=== PATIENT | male | born 1960 | race Caucasian/White ===

== ENCOUNTER 2017-10-07 09:41 | Emergency (ER) | payer OTHER ==
--- NOTE | 2017-10-07 10:00 | Emergency Department Record ---
History of Present Illness - General Chief complaint: ENT Stated complaint: SORE THROAT Time Seen by Provider: 10/07/17 09:54 Source: Patient Mode of Arrival: Ambulatory Limitations: No limitations - History of Present Illness Initial comments: The patient has a ST and hoarse voice for 5 days and now also is coughing up colored sputum. He denies any CP, SOB, ZENAIDA, or fever. The patient states the coughing seems to be worsening now. MD complaint: Sore throat Onset/Timin -: Days(s) Location: Throat Severity: Moderate Severity scale (1-10): 3 Quality: Other Consistency: Intermittent - Related Data Previous Rx's Medication Instructions Recorded Azithromycin [Zithromax] 250 mg PO ASDIR #6 tab 10/07/17 Prednisone [Prednisone 20Mg] 40 mg PO DAILY #8 tab 10/07/17 Allergies Allergy/AdvReac Type Severity Reaction Status Date / Time lidocaine [LIDOCAINE] Allergy Unknown HYPERSENSIT Verified 10/07/17 09:56 IVITY Travel Screening - Travel/Exposure Within Last 30 Days Have you traveled within the last 30 days?: Yes Location Detail:: [place] - Travel/Exposure Within Last Year Have you traveled outside the [place] in the last year?: Yes Location Detail:: [place] - Travel Symptoms Symptom Screening: None Review of Systems Constitutional: Reports: Malaise. Denies: Chills, Fever Eyes: Denies: Eye discharge ENT: Reports: Congestion, Throat pain Respiratory: Reports: Cough. Denies: Dyspnea Past Medical History - SOCIAL HISTORY Smoking Status: Former smoker Alcohol Use: Rare Drug Use: None - RESPIRATORY Hx Respiratory Disorders: Yes Hx Sleep Apnea: Yes Hx of CPAP: Yes - CARDIOVASCULAR Hx Cardio Disorders: Yes Hx Chest Pain: Yes Hx Hypertension: Yes Hx Irregular Heartbeat: Yes Comment:: age of 8 rheumatic fever - NEURO Hx Neuro Disorders: Yes Comment:: early Parkinsons - GI Hx GI Disorders: Yes Hx Diverticulitis: Yes Hx Reflux: Yes Hx Hiatal Hernia: Yes Hx Rectal Bleeding: Yes - Hx Genitourinary Disorders: No - ENDOCRINE Hx Endocrine Disorders: No Hx Diabetes: No Hx Thyroid Disease: No - MUSCULOSKELETAL Hx Arthritis: Yes - PSYCH Hx Psych Problems: No - HEMATOLOGY/ONCOLOGY Hx Hematology/Oncology Disorders: No Family Medical History Any Significant Family History?: No Hx Cancer: Brother/Sister Hx Diabetes: Father, Mother, Brother/Sister Hx Heart Disease: Father Physical Exam - General General Appearance: Alert, Oriented x3, Cooperative, No acute distress - Head Head exam: Atraumatic, Normocephalic, Normal inspection - Eye Eye exam: Normal appearance, PERRL - ENT ENT exam: TM's normal bilaterally. negative: Normal exam Throat exam: Tonsillar erythema. negative: Normal inspection, Tonsillomegaly, Tonsillar exudate, R peritonsillar mass, L peritonsillar mass - Neck Neck exam: Normal inspection, Full ROM. negative: Lymphadenopathy, Meningismus , Tenderness - Respiratory Respiratory exam: Normal lung sounds bilaterally. negative: Respiratory distress - Cardiovascular Cardiovascular Exam: Regular rate, Normal rhythm, Normal heart sounds Course Vital Signs 10/07/17 09:44 Temperature 98.6 F Pulse Rate 75 Respiratory 16 Rate Blood Pressure 143/91 Pulse Ox 98 - Reevaluation(s) Reevaluation #1: I did explain to the patient that he has a significant URI which most likely is viral in origin. Due to the coughing worsening we will place the patient on a Zpak with prednisone for pain. 10/07/17 10:04 Disposition Disposition: Discharge Clinical Impression: Upper respiratory infection, acute Disposition: Home, Self-Care Condition: (2) Stable Instructions: Upper Respiratory Infection (ED) Additional Instructions: Please use Tylenol for pain and take the Zpak and Prednisone as directed. Please see your PCP in 3 days if not better. Return to the ER for any increased pain, fever, or shortness of breath. Prescriptions: Azithromycin [Zithromax] 250 mg PO ASDIR #6 tab Prednisone [Prednisone 20Mg] 40 mg PO DAILY #8 tab Forms: Patient Portal Access Time of Disposition: 10:02 Quality - Quality Measures Quality Measures: N/A - Blood Pressure Screening View Details: Yes Does Patient Have Any of the Following: No Blood Pressure Classification: Hypertensive Reading Systolic Measurement: 143 Diastolic Measurement: 92 Screening for High Blood Pressure: < Pre-Hypertensive BP, F/U Documented > [ [id number]] Pre-Hypertensive Follow-up Interventions: Referral to alternative/primary care provider.
== END 2017-10-07 10:10 | disposition home or self-care (01) ==
LOC: ER 09:41
DX: J06.9 Acute upper respiratory infection, unspecified (principal); R05 Cough
CPT/HCPCS: 99282

== ENCOUNTER 2018-12-06 11:21 | Emergency (ER) | payer OTHER ==
[2018-12-06] MEDS ORDERED: HYDROCODONE/APAP 7.5/325MG TABLET PO ONE (11:44)
--- NOTE | 2018-12-06 11:44 | Emergency Department Record ---
History of Present Illness - General Chief Complaint: Back Pain/Injury Stated Complaint: BACK PAIN X2 WKS Time Seen by Provider: 12/06/18 11:26 Source: Patient, Family Mode of Arrival: Ambulatory Limitations: No limitations - History of Present Illness Initial Comments: 58 yo male presents with right sided back for about two weeks. The pain has gradually come on and gradually increased. He points to an area over the right flank. No rash. He did not his urine seemed darker. No obvious blood. No fevers, chills. No leg radiation. No abdominal pain or radiation to the abdomen. The pain is worse with certain movements, walking and bending. No leg numbness, tingling, weakness or shooting pains. No foot drop. No history of back surgery. His PCP is Dr Darling. He has an appointment in about one week but could not wait due to pain. He is unaware of any specific injury. MD Complaint: Back pain Onset/Timin -: Week(s) Similar Symptoms Previously: No Place: Home Severity: Moderate Severity scale (1-10): 6 Quality: Aching, Sharp Improves With: None Worsens With: Immobilization, Walking, Other Associated Symptoms: Denies other symptoms, Other - Related Data Home Medications Medication Instructions Recorded Confirmed Last Taken Atorvastatin Calcium [Lipitor] 40 mg PO QHS 12/06/18 12/06/18 12/05/18 Ubidecarenone [Coq-10] 100 mg PO DAILY 12/06/18 12/06/18 12/06/18 Vitamin B Complex/Folic Acid 0.4 mg PO DAILY 12/06/18 12/06/18 12/06/18 [B-Complex Tablet] Previous Rx's Medication Instructions Recorded Hydrocodone/Acetaminophen [Golden 1 tab PO Q6H PRN #12 tab 12/06/18 5mg/325mg] Allergies Allergy/AdvReac Type Severity Reaction Status Date / Time lidocaine [LIDOCAINE] Allergy Unknown HYPERSENSIT Verified 10/07/17 09:56 IVITY Travel Screening - Travel/Exposure Within Last 30 Days Have you traveled within the last 30 days?: Yes Location Detail:: [place]/[facility] - Travel/Exposure Within Last Year Have you traveled outside the [place] in the last year?: No - Additonal Travel Details Have you been exposed to anyone with a communicable illness?: No - Travel Symptoms Symptom Screening: None Review of Systems Constitutional: Denies: Chills, Fever, Malaise, Weakness Eyes: Denies: Eye discharge ENT: Denies: Congestion, Throat pain Respiratory: Denies: Cough, Dyspnea, Hemoptysis, Stridor, Wheezes Cardiovascular: Denies: Chest pain, Dyspnea on exertion, Palpitations, Syncope Endocrine: Denies: Fatigue Gastrointestinal: Denies: Abdominal pain, Diarrhea, Nausea, Vomiting Genitourinary: Reports: As per HPI, Dysuria. Denies: Frequency, Hematuria Musculoskeletal: Reports: Back pain, Myalgia. Denies: Arthralgia, Joint swelling, Neck pain Skin: Denies: Bruising, Change in color, Rash Neurological: Denies: Abnormal gait, Headache, Numbness, Paresthesias, Tingling , Tremors, Weakness Psychiatric: Denies: Anxiety Hematological/Lymphatic: Denies: Blood Clots, Easy bleeding, Easy bruising, Swollen glands Past Medical History - SOCIAL HISTORY Smoking Status: Former smoker Alcohol Use: Occasional Drug Use: None - RESPIRATORY Hx Respiratory Disorders: Yes Hx Sleep Apnea: Yes Hx of CPAP: Yes - CARDIOVASCULAR Hx Cardio Disorders: Yes Hx Chest Pain: Yes Hx Hypertension: Yes Hx Irregular Heartbeat: Yes Comment:: age of 8 rheumatic fever - NEURO Hx Neuro Disorders: Yes Comment:: early Parkinsons - GI Hx GI Disorders: Yes Hx Diverticulitis: Yes Hx Reflux: Yes Hx Hiatal Hernia: Yes Hx Rectal Bleeding: Yes - Hx Genitourinary Disorders: No - ENDOCRINE Hx Endocrine Disorders: No Hx Diabetes: No Hx Thyroid Disease: No - MUSCULOSKELETAL Hx Arthritis: Yes - PSYCH Hx Psych Problems: No - HEMATOLOGY/ONCOLOGY Hx Hematology/Oncology Disorders: No Family Medical History Any Significant Family History?: No Hx Cancer: Brother/Sister Hx Diabetes: Father, Mother, Brother/Sister Hx Heart Disease: Father Physical Exam - General General Appearance: Alert, Oriented x3, Cooperative, No acute distress Limitations: No limitations - Head Head exam: Atraumatic, Normocephalic, Normal inspection - Eye Eye exam: Normal appearance, PERRL. negative: Conjunctival injection, Scleral icterus - ENT ENT exam: Normal exam, Mucous membranes moist Ear exam: Normal external inspection Nasal Exam: Normal inspection Mouth exam: Normal external inspection - Neck Neck exam: Normal inspection - Respiratory Respiratory exam: Normal lung sounds bilaterally. negative: Respiratory distress, Rhonchi, Stridor, Wheezes - Cardiovascular Cardiovascular Exam: Regular rate, Normal rhythm, Normal heart sounds Peripheral Pulses: 2+: Radial (R), Radial (L) - GI/Abdominal GI/Abdominal exam: Soft, Other (soft , non tender, no pulsation but limitation due to habitus). negative: Distended, Guarding, Pulsatile mass, Tenderness - Rectal Rectal exam: Deferred - exam: Deferred - Extremities Extremities exam: Normal inspection. negative: Pedal edema, Tenderness - Back Back exam: Reports: Normal inspection, CVA tenderness (R), Full ROM, Paraspinal tenderness, Tenderness. Denies: CVA tenderness (L), Rash noted, Vertebral tenderness - Neurological Neurological exam: Alert, Normal gait, Oriented X3, Other (No foot drop, sensation is intact bilateral lower extremities, no weakness or quads, plantar or dorsiflexion.). negative: Abnormal gait, Altered, Motor sensory deficit - Psychiatric Psychiatric exam: Normal affect, Normal mood. negative: Agitated, Anxious - Skin Skin exam: Dry, Intact, Normal color, Warm Course Vital Signs 12/06/18 11:25 Temperature 97.8 F Pulse Rate 66 Respiratory 18 Rate Blood Pressure 158/93 Pulse Ox 96 - Reevaluation(s) Reevaluation #1: 12/06/18 12:22 The UA is negative for any acute process 12/06/18 13:[address] was reviewed The aneurysm increases from 3.1cm to 3.7cm over a 4 year time period The patient was informed and he is aware this will need oil heaterman monitoring through Dr Darling Disposition Disposition: Discharge Clinical Impression: Abdominal aneurysm, Lumbar pain Disposition: Home, Self-Care Condition: (1) Good Instructions: Low Back Strain (ED) Additional Instructions: Follow up with Dr Darling as scheduled Avoid prolonged bending, standing, or heavy lifting You abdominal aneurysm will require halfway follow up with Dr Darling with periodic checks of the size Prescriptions: Hydrocodone/Acetaminophen [Golden 5mg/325mg] 1 tab PO Q6H PRN #12 tab PRN Reason: Pain - General Forms: Patient Portal Access Time of Disposition: 13:30 Quality - Quality Measures Quality Measures: N/A - Blood Pressure Screening Does Patient Have Any of the Following: Active Dx of HTN Blood Pressure Classification: Hypertensive Reading Systolic Measurement: 158 Diastolic Measurement: 93 Screening for High Blood Pressure: Patient Exclusion, Hx of HTN [J1193]
[2018-12-06 12:05] LABS: URINE APPEARANCE CLEAR; URINE BILIRUBIN NEGATIVE (NEGATIVE); URINE BLOOD NEGATIVE (NEGATIVE); URINE COLOR YELLOW; URINE GLUCOSE (UA) NEGATIVE (NEGATIVE); URINE KETONE NEGATIVE (NEGATIVE); URINE LEUKOCYTE ESTERASE NEGATIVE (NEGATIVE); URINE NITRITE NEGATIVE (NEGATIVE); URINE PROTEIN NEGATIVE (NEGATIVE); URINE UROBILINOGEN 0.2 E.U./dL (0.20 - 1.00)
--- NOTE | 2018-12-07 19:30 | CT SCAN REPORT ---
EXAM: CT SCAN ABDOMEN/PELVIS WO CONTRAST HISTORY: RIGHT LOWER BACK/ABDOMINAL PAIN FOR TWO WEEKS. TECHNIQUE: Routine noncontrast CT of the abdomen and pelvis. COMPARISON: CT abdomen and pelvis 06/15/2015. FINDINGS: Minor dependent lower lobe atelectasis bilaterally. Small hiatal hernia. Unremarkable noncontrast appearance of the liver, gallbladder, spleen, adrenal glands, and pancreas. Simple fluid-attenuation 3.5 cm exophytic cyst arising from the right kidney. No hydronephrosis. No shadowing calculi detected. No intraureteral or bladder calculi. Bladder is nondistended and not otherwise well assessed. Abdominal aorta is calcified and tortuous. There is fusiform aneurysmal dilation of the infrarenal abdominal aorta measuring up to 3.7 cm in maximal transverse diameter (series 3, image #97), previously 3.1 cm at a similar slice level. No focal colonic thickening or inflammatory changes. Colonic diverticulosis without evidence of acute diverticulitis. Normal appendix. Stomach and small bowel are nondilated. No free air or free fluid in the abdomen or pelvis. Small prostatic calcifications. Mild scatted thoracolumbar spine degenerative findings. No acute osseous findings. IMPRESSION: 1. NO ACUTE FINDINGS IN THE ABDOMEN OR PELVIS. NO EVIDENCE OF OBSTRUCTIVE UROPATHY OR UROLITHIASIS. 2. INFRARENAL ABDOMINAL AORTIC ANEURYSM MEASURING UP TO 3.7 CM, INCREASED FROM 3.[address] ON [address] 3. COLONIC DIVERTICULOSIS WITHOUT EVIDENCE OF ACUTE DIVERTICULITIS. 4. SIMPLE RIGHT RENAL CORTICAL CYST. JOB NUMBER: [id number] [facility]
== END 2018-12-06 13:41 | disposition home or self-care (01) ==
LOC: ER 11:21
DX: I71.4 Abdominal aortic aneurysm, without rupture (principal); M54.5 Low back pain; I10 Essential (primary) hypertension; Z87.891 Personal history of nicotine dependence
CPT/HCPCS: 74176; 81003; 99283; 99284